=== PATIENT | male | born 1985 | race American Indian/Alaskan Native ===

== ENCOUNTER 2016-09-02 18:49 | Emergency (ER) | payer SELFPAY ==
[2016-09-02 19:40] VITALS: BP 117/72
[2016-09-03] MEDS ORDERED: KEFLEX PO ONE (00:45)
[2016-09-03] MEDS ORDERED: BACTRIM DS PO ONE (00:45)
[2016-09-03] MEDS ORDERED: MOTRIN PO ONE (00:46)
--- NOTE | 2016-09-03 01:12 | Emergency Department Report ---
HPI - General Chief Complaint: Animal Bite Time Seen by Provider: 09/03/16 00:22 - HPI HPI: 30-year-old male past medical history presents with 3 days of irritated skin above the left lateral ankle region. Patient denies any trauma denies any fever or chills no nausea or vomiting denies any scratches or insect bites or animal bites to area. Patient states that initially skin became sensitive and then progressively got redder and more irritated over the last 3 days. Denies any lesions anywhere else on body. ED Past Medical Hx - Medications Home Medications: Home Medications Medication Instructions Recorded Confirmed Last Taken Type Cephalexin [Keflex] 500 mg PO Q12HR #14 cap 09/03/16 Unknown Rx Ibuprofen [Motrin] 600 mg PO Q8H PRN #25 tablet 09/03/16 Unknown Rx Sulfamethoxazole/Trimethoprim 1 each PO BID #14 tablet 09/03/16 Unknown Rx [Bactrim DS TAB] ED Review of Systems ROS: Stated complaint: SPIDER BITE LT LEG /ANKLE /SWELLING/NAUSEA/FATIGUE Other details as noted in HPI Constitutional: denies: chills, fever Eyes: denies: eye pain, eye discharge, vision change ENT: denies: ear pain, throat pain Respiratory: denies: cough, shortness of breath, wheezing Cardiovascular: denies: chest pain, palpitations Endocrine: no symptoms reported Gastrointestinal: denies: abdominal pain, nausea, diarrhea Genitourinary: denies: urgency, dysuria Musculoskeletal: denies: back pain, joint swelling, arthralgia Skin: as per HPI, lesions (erythematous patch left ankle lateral above left malleolus). denies: rash Neurological: denies: headache, weakness, paresthesias Psychiatric: denies: anxiety, depression Hematological/Lymphatic: denies: easy bleeding, easy bruising Physical Exam - Physical Exam Vital Signs: Vital Signs 09/02/16 19:37 Temperature 99.6 F Pulse Rate 101 H Respiratory 22 Rate Blood Pressure 117/72 O2 Sat by Pulse 100 Oximetry General: General: Well appearing, well nourished, in no distress. Oriented x 3, normal mood and affect . Ambulating without difficulty. Head: Normocephalic, atraumatic, no visible or palpable masses, depressions, or scaring. Eyes: Visual acuity intact, conjunctiva clear, sclera non-icteric, EOM intact, PERRLA Neck: Supple, without lesions, bruits, or adenopathy, thyroid non-enlarged and non-tender Heart: No cardiomegaly or thrills; regular rate and rhythm, no murmur or gallop Lungs: Clear to auscultation and percussion Abdomen: Bowel sounds normal, no tenderness, organomegaly, masses, or hernia Back: Spine normal without deformity or tenderness, no CVA tenderness Extremities: Patch of cellulitis about 9 cm x 5 cm over the left lateral malleoli or ankle region. Erythematous, painful to touch, warm to palpation. Distal dorsalis pedis and posterior tibial pulses intact, range of motion left ankle and foot fully intact, patient able to ambulate without any assistance. Musculoskeletal: Normal gait and station. No misalignment, asymmetry, crepitation, defects, tenderness, masses, effusions, decreased range of motion, instability, atrophy or abnormal strength or tone in the head, neck, spine, ribs , pelvis or extremities. Neurologic: CN 2-12 normal. ED Course Vital Signs 09/02/16 19:37 Temperature 99.6 F Pulse Rate 101 H Respiratory 22 Rate Blood Pressure 117/72 O2 Sat by Pulse 100 Oximetry ED Medical Decision Making - Medical Decision Making A/P: Left lower extremity cellulitis 1-small patch of cellulitis approximately 9 x 5 cms oval-shaped above the left lateral malleolar region, no associated abscess. Range of motion left foot/ ankle fully intact no difficulty ambulating. Borders of cellulitis marked and dated 2-will treat patient empirically with Bactrim DS twice a day 1 week and Keflex 500 mg twice a day 1 week 3-Motrin when necessary for pain 4-48-hour wound check, patient can return to ED, urgent care or primary care for cellulitis reassessment 5-I advised patient to return to the ED feels a sensation of his foot cannot ambulate pain worsens or cellulitis spreads rapidly beyond borders marked today Critical care attestation.: If time is entered above; I have spent that time in minutes in the direct care of this critically ill patient, excluding procedure time. ED Disposition Clinical Impression: Cellulitis of left lower extremity Disposition: DISCHARGED TO HOME OR SELFCARE Is pt being admited?: No Does the pt Need Aspirin: No Condition: Stable Instructions: Cellulitis (ED) Additional Instructions: Patient advised to report to the ED within 24 to 48 hours for reassessment of cellulitis Prescriptions: Sulfamethoxazole/Trimethoprim [Bactrim DS TAB] 1 each PO BID #14 tablet Cephalexin [Keflex] 500 mg PO Q12HR #14 cap Ibuprofen [Motrin] 600 mg PO Q8H PRN #25 tablet PRN Reason: Pain Referrals: PRIMARY CAREMD [Primary Care Provider] - 3-5 Days [facility] [Outside] - 3-5 Days ALEXANDRIA ESPARZA MD [Staff Physician] - 3-5 Days Forms: Work/School Release Form(ED) Time of Disposition: 01:12
== END 2016-09-03 01:23 | disposition home or self-care (01) ==
LOC: ED 18:49
DX: L03.116 Cellulitis of left lower limb (principal)